=== PATIENT | male | born 1985 | race Two or more races ===

== ENCOUNTER 2018-01-16 10:17 | Emergency (ER) | payer SELFPAY ==
[~2018-01-16] VITALS: Ht 180.3 cm; Wt 81.6 kg
[2018-01-16] VITALS (7 sets, daily range): BP systolic 125–149; BP diastolic 70–89
[2018-01-16 11:03] LABS: BASOPHILS % (AUTO) 0.9 % (0.0-2.0); EOSINOPHILS % (AUTO) 0.8 % (0.0-3.0); HEMATOCRIT 48.4 % (42.0-52.0); HEMOGLOBIN 16.7 G/DL (14.2-18.0); MEAN CORPUSCULAR VOLUME 85 FL (80-99); MONOCYTES % (AUTO) 7.3 % (1.0-10.0); PLATELET COUNT 308 K/UL (150-450); RED BLOOD COUNT 5.66 M/UL (4.70-6.10); RED CELL DISTRIBUTION WIDTH 10.6 % (11.6-14.8); WHITE BLOOD COUNT 9.6 K/UL (4.8-10.8)
[2018-01-16 11:11] LABS: ANION GAP 11 mmol/L (5-15); BLOOD UREA NITROGEN 13 mg/dL (7-18); CALCIUM 9.7 MG/DL (8.5-10.1); CARBON DIOXIDE 26 MMOL/L (21-32); CHLORIDE 104 MMOL/L (98-107); CREATININE 1.2 MG/DL (0.55-1.30); POTASSIUM 3.3 MMOL/L (3.5-5.1); SODIUM 141 MMOL/L (136-145)
[2018-01-16 11:22] LABS: ALANINE AMINOTRANSFERASE 63 U/L (12-78); ALBUMIN 4.3 G/DL (3.4-5.0); ALBUMIN/GLOBULIN RATIO 0.9 (1.0-2.7); ALKALINE PHOSPHATASE 127 U/L (46-116); ASPARTATE AMINO TRANSFERASE 45 U/L (15-37); BILIRUBIN,TOTAL 1.2 MG/DL (0.2-1.0)
[2018-01-16 11:23] LABS: BILIRUBIN,DIRECT 0.3 MG/DL (0.0-0.3)
--- NOTE | 2018-01-16 13:20 | Emergency Room Report ---
History of Present Illness General Chief Complaint: Behavioral Complaint Source: Patient (Renetta Giles DO) Present Illness HPI Patient possessed by paramedics and police department Placed on a 5150 by police The patient was found acting inappropriate outside of his apartment The people in the other apartment apparently reported the patient appeared to be acting erratic They report the patient stating that he wanted to hurt other people Upon arrival the patient denies any suicidal or homicidal thoughts He reports that he has been up for several days and thinks that he needed to essentially calm down Denies any previous medical history (YobanijasperRenetta ) Allergies: Coded Allergies: No Known Allergies (Unverified , 01/16/18) Patient History Past Medical History: see triage record Pertinent Family History: none Reviewed Nursing Documentation: PMH: Agreed; PSxH: Agreed (Renetta Giles DO) Nursing Documentation-PMH Past Medical History: No History, Except For (ChanRenetta BLANC) Review of Systems All Other Systems: negative except mentioned in HPI (YobanijasperRenetta BLANC) Physical Exam Vital Signs Date Time Temp Pulse Resp B/P (MAP) Pulse Ox O2 Delivery O2 Flow Rate FiO2 01/16/18 10:15 98.4 100 18 117/75 99 Room Air Sp02 EP Interpretation: reviewed, normal General Appearance: well appearing, no apparent distress Head: normocephalic, atraumatic Eyes: bilateral eye PERRL, bilateral eye EOMI ENT: hearing grossly normal, normal pharynx Neck: full range of motion, supple Respiratory: chest non-tender, lungs clear Cardiovascular #1: regular rate, rhythm, no edema Gastrointestinal: non tender, soft Genitourinary: no CVA tenderness Musculoskeletal: normal inspection Neurologic: alert, oriented x3, responsive Psychiatric: mood/affect normal Skin: normal color, no rash Lymphatic: no adenopathy (Renetta Giles DO) Medical Decision Making Diagnostic Impression: Primary Impression: Behavioral change Additional Impression: Acute psychosis ER Course Currently the patient denies any homicidal or suicidal thoughts He was however placed on a 5150 by police department initially given the erratic behavior Patient is found to have amphetamine positive Continues to rest comfortably in the emergency room Psychiatric consultation is being made for further evaluation Patient is accepted in transfer to psychiatric facility for further care Labs Test 01/16/18 10:40 White Blood Count 9.6 K/UL (4.8-10.8) Red Blood Count 5.66 M/UL (4.70-6.10) Hemoglobin 16.7 G/DL (14.2-18.0) Hematocrit 48.4 % (42.0-52.0) Mean Corpuscular Volume 85 FL (80-99) Mean Corpuscular Hemoglobin 29.5 PG (27.0-31.0) Mean Corpuscular Hemoglobin Concent 34.6 G/DL (32.0-36.0) Red Cell Distribution Width 10.6 % (11.6-14.8) Platelet Count 308 K/UL (150-450) Mean Platelet Volume 6.3 FL (6.5-10.1) Neutrophils (%) (Auto) 79.0 % (45.0-75.0) Lymphocytes (%) (Auto) 12.0 % (20.0-45.0) Monocytes (%) (Auto) 7.3 % (1.0-10.0) Eosinophils (%) (Auto) 0.8 % (0.0-3.0) Basophils (%) (Auto) 0.9 % (0.0-2.0) Sodium Level 141 MMOL/L (136-145) Potassium Level 3.3 MMOL/L (3.5-5.1) Chloride Level 104 MMOL/L (98-107) Carbon Dioxide Level 26 MMOL/L (21-32) Anion Gap 11 mmol/L (5-15) Blood Urea Nitrogen 13 mg/dL (7-18) Creatinine 1.2 MG/DL (0.55-1.30) Estimat Glomerular Filtration Rate > 60 mL/min (>60) Glucose Level 89 MG/DL (74-106) Calcium Level 9.7 MG/DL (8.5-10.1) Total Bilirubin 1.2 MG/DL (0.2-1.0) Direct Bilirubin 0.3 MG/DL (0.0-0.3) Aspartate Amino Transf (AST/SGOT) 45 U/L (15-37) Alanine Aminotransferase (ALT/SGPT) 63 U/L (12-78) Alkaline Phosphatase 127 U/L (46-116) Total Protein 8.9 G/DL (6.4-8.2) Albumin 4.3 G/DL (3.4-5.0) Globulin 4.6 g/dL Albumin/Globulin Ratio 0.9 (1.0-2.7) Salicylates Level < 0.2 ug/mL (2.8-20) Urine Opiates Screen Negative (NEGATIVE) Acetaminophen Level < 2 MCG/ML (10-30) Urine Barbiturates Screen Negative (NEGATIVE) Phencyclidine (PCP) Screen Negative (NEGATIVE) Urine Amphetamines Screen Positive (NEGATIVE) Urine Benzodiazepines Screen Negative (NEGATIVE) Urine Cocaine Screen Negative (NEGATIVE) Urine Marijuana (THC) Screen Negative (NEGATIVE) Serum Alcohol < 3 mg/dL (Renetta Giles DO) ER Course The patient was discussed with [facility] by staff and will be transferred for psychiatric treatment. (Tulio Armijo MD) Last Vital Signs Date Time Temp Pulse Resp B/P (MAP) Pulse Ox O2 Delivery O2 Flow Rate FiO2 01/16/18 10:25 97 21 Room Air 01/16/18 10:25 98.4 134/84 99 Status: improved (Renetta Giles DO) Disposition: XFER TO PSYCH HOSP/UNIT Condition: Improved Referrals: NOT CHOSEN [facility]/,REFERRING (PCP) Renetta Giles DO Jan 16, 2018 13:20 Tulio Armijo MD Jan 16, 2018 18:36
[2018-01-16] MEDS ORDERED: LORazepam 1mg tab ORAL ONE (21:45)
[2018-01-17 00:54] VITALS: BP 125/63
== END 2018-01-17 00:15 | disposition home or self-care (01) ==
LOC: EDBD 10:17 → EMR 10:30
DX: F23 Brief psychotic disorder (principal)
CPT/HCPCS: 36415; 80053; 80307; 82248; 85025; 99285; G0480; 80329